=== PATIENT | male | born 1980 | race Caucasian/White ===

== ENCOUNTER 2018-05-29 17:34 | Emergency (ER) | payer MEDICAID, SELFPAY ==
[2018-05-29 17:36] VITALS: BP 141/109; PULSE 103; RESP 24; TEMP 37.3; O2SAT 99; BMI 20.1
--- NOTE | 2018-05-29 18:35 | ED.VISSUMM ---
- ER Visit Summary Date of Service: 05/29/18 Chief Complaint: Heroin withdrawal History of Present Illness: The patient is a 38 M who presents for heroin withdrawal today. Patient last used last night, and he snorts heroin but does not inject. He is gradually had worsening symptoms since his last use, with tremulousness, pain all over, myalgias and arthralgias, and anxiety. He denies any vomiting or diarrhea at this time. Patient denies any fever, chest pain but does feel short of breath. He denies any other substance use or alcohol use. denies Medical problems. Girlfriend attempted to find him a rehab program, but was unable to do so. Patient does not have insurance at this time. Physical Examination: Vital signs: afebrile, hemodynamically stable, tachycardic and hypertensive, no hypoxia on room air General: well nourished, well developed, hugging body wrapped in a blanket, appears uncomfortable but nontoxic appearing, anxious and tremulous Skin: warm, dry, no rash, no pallor, positive piloerection on the arms, no track faulkner noted, no rash HEENT: normocephalic and atraumatic; PERRL, EOMI, moist mucous membranes Cardiovascular: Tachycardic rate and rhythm without murmurs, no peripheral edema, 2+ pulses all distal extremities Respiratory: No increased work of breathing, lungs are clear to auscultation bilaterally, no rales, rhonchi or wheezing Abdominal: Abdomen is soft, nontender with normoactive bowel sounds, no guarding or rebound, no masses MSK: Moves all extremities, no deformities, normal strength Neuro: Awake and alert, oriented ?4. No facial droop, sensation and motor function intact and symmetric Test Results: [] Emergency Department Course and Treatment: Discussed with the patient and girlfriend that since he is self-pay, he would have to pay up front for our rehab program. They were not interested in that. Patient was given clonidine, Phenergan, and Tylenol for symptoms. On reevaluation, patient was sleeping, and upon awakening stated he felt better. Patient was given prescription for Phenergan and Tylenol. He was discharged home in improved condition. Treatment Plan: [] Disposition: [] Impression: Heroin withdrawal This note was generated with [employer] software. It may contain incorrect words, spelling, and punctuation that were not noted in review of the chart prior to signing ED Disposition - Plan for ED Patient: Disposition: Home or Assisted Living Chief Complaint: Substance Abuse Instructions: ED Withdrawal Narcotic Prescriptions: Acetaminophen [Tylenol Extra Strength] 500 mg PO Q4H PRN PRN #30 tab PRN Reason: Pain proMETHazine tablet [Phenergan tablet] 25 mg PO Q4H PRN PRN #20 tab PRN Reason: Nausea Referrals: Care Physician,No Primary [Primary Care Provider] - EIGHTY,ONE [STAFF PHYSICIAN] - 2 Days Additional Instructions: Use the promethazine for nausea and the tylenol for pain.
[2018-05-29] MEDS: cloNIDine HCl 0.1 MG Tablet PO (19:01)
[2018-05-29] MEDS: proMETHazine 25 MG Tablet PO (19:01)
[2018-05-29] MEDS: Acetaminophen 500 MG Tablet 1000 MG PO (19:01)
--- NOTE | 2018-05-29 19:21 | ED.DEP ---
ED Disposition - Plan for ED Patient: Disposition: Home or Assisted Living Chief Complaint: Substance Abuse Instructions: ED Withdrawal Narcotic Prescriptions: Acetaminophen [Tylenol Extra Strength] 500 mg PO Q4H PRN PRN #30 tab PRN Reason: Pain proMETHazine tablet [Phenergan tablet] 25 mg PO Q4H PRN PRN #20 tab PRN Reason: Nausea Referrals: Care Physician,No Primary [Primary Care Provider] - EIGHTY,ONE [STAFF PHYSICIAN] - 2 Days Additional Instructions: Use the promethazine for nausea and the tylenol for pain.
== END 2018-05-29 19:05 | disposition home or self-care (01) ==
PROVIDERS: Emergency Provider Emergency Medicine
DX: F11.23 Opioid dependence with withdrawal (principal); Z72.0 Tobacco use
CPT/HCPCS: 99281